=== PATIENT | female | born 1980 | race Caucasian/White ===

== ENCOUNTER 2018-04-07 09:42 | Observation (INO) | payer MEDICAID ==
[~2018-04-07 09:42] MED LIST: CEFAZOLIN 1 GM INJ; DEXAMETHASONE 4 MG/ML 1 ML INJ; LIDOCAINE 2% (SDV) 5 ML INJ; ONDANSETRON 4 MG INJ
[2018-04-07] MEDS ORDERED: PROPOFOL 20 ML (12:37)
[2018-04-07] MEDS ORDERED: BUPIVACAINE 0.75%/DEXT (SPINAL) 2 ML INJ (12:38)
[2018-04-07] MEDS ORDERED: MIDAZOLAM 1 MG/ML 2 ML INJ (12:38)
[2018-04-07] MEDS ORDERED: FENTAnyl 50 MCG/ML VIAL (12:38)
[2018-04-07] MEDS ORDERED: LACTATED RINGER'S 1,000 ML IV (13:00)
[2018-04-07] MEDS: BUPIVACAINE 0.25%/EPI (MDV) 50 ML VIAL INJ (13:33)
[2018-04-07] MEDS ORDERED: LABETALOL HCL 20MG INJ IV (14:00)
[2018-04-07] MEDS ORDERED: hydrALAzine 20 MG INJ IV (14:00)
[2018-04-07] MEDS ORDERED: MEPERIDINE 25 MG INJ IV (14:00)
[2018-04-07] MEDS ORDERED: ALBUTEROL 0.083% (NEB) 2.5 MG/3 ML AMP HHN (14:00)
[2018-04-07] MEDS ORDERED: DIPHENHYDRAMINE 50 MG INJ IV (14:00)
[2018-04-07] MEDS ORDERED: EPHEDrine SULFATE 50 MG/5 ML SYG IV (14:00)
[2018-04-07] MEDS ORDERED: FENTAnyl 50 MCG/ML VIAL IV (14:00)
[2018-04-07] MEDS ORDERED: ONDANSETRON 4 MG INJ IV (14:00)
[2018-04-07] MEDS ORDERED: OXYCODONE/ACETAMINOPHEN (5/325) TAB PO ×2 (14:00)
[2018-04-07] MEDS: KETOROLAC 30 MG INJ IV (14:50)
[2018-04-07] MEDS: HYDROmorphONE 1 MG/5 ML IV SYRINGE IV ×2 (15:10→16:07)
[2018-04-07] MEDS: FENTAnyl 50 MCG/ML VIAL IV ×2 (15:10→16:07)
[2018-04-07] MEDS ORDERED: BUTORPHANOL 1 MG INJ IV (17:30)
[2018-04-07] MEDS: IBUPROFEN 600 MG TAB PO (18:11)
[2018-04-07] MEDS: LACTATED RINGER'S 1,000 ML IV (18:30)
[2018-04-07] MEDS ORDERED: HYDROCODONE/APAP (10/325) TAB PO (18:30)
[2018-04-07] MEDS ORDERED: HYDROmorphONE 1 MG/ML SYG IV (18:30)
[2018-04-07] MEDS: HYDROCODONE/APAP (10/325) TAB PO (19:00)
[2018-04-08] MEDS: IBUPROFEN 600 MG TAB PO ×3 (00:15→12:00)
[2018-04-08] MEDS: LACTATED RINGER'S 1,000 ML IV ×2 (03:01→10:30)
[2018-04-08] MEDS: HYDROCODONE/APAP (10/325) TAB PO (08:13)
== END 2018-04-08 14:55 | disposition home or self-care (01) ==
LOC: SDS 09:42 → MS1 18:01
DX: Z30.2 Encounter for sterilization (principal)
CPT/HCPCS: 58600; 88302

== ENCOUNTER 2019-01-08 15:54 | Emergency (ER) | payer MEDICAID ==
[2019-01-08] MEDS: HYDROCODONE/APAP (5/325) TAB PO (18:03)
[2019-01-08 18:27] LABS: ADD UMIC YES; UR ASCORBIC ACID 20 mg/dL (NEGATIVE); UR BILIRUBIN (Dip) NEGATIVE (NEGATIVE); UR BLOOD (Dip) NEGATIVE (NEGATIVE); UR CLARITY CLEAR (CLEAR); UR COLOR YELLOW (YELLOW); UR GLUCOSE (Dip) NEGATIVE (NEGATIVE); UR KETONES (Dip) NEGATIVE (NEGATIVE); UR LEUKOCYTE ESTERASE (Dip) 2+ Leu/ul (NEGATIVE); UR NITRITE (Dip) NEGATIVE (NEGATIVE); UR RBC 1 /HPF (0-5); UR SPECIFIC GRAVITY (Dip) 1.013 (1.003-1.030); UR TOTAL PROTEIN (Dip) NEGATIVE (NEGATIVE); UR UROBILINOGEN (Dip) NEGATIVE (NEGATIVE); UR WBC 1 /HPF (0-5)
== END 2019-01-08 20:05 | disposition home or self-care (01) ==
LOC: FTE 15:54
DX: N30.00 Acute cystitis without hematuria (principal); R10.2 Pelvic and perineal pain
CPT/HCPCS: 76830; 76856; 81001; 81025; 99284-25